=== PATIENT | female | born 1990 | race Caucasian/White ===

== ENCOUNTER 2017-04-15 04:13 | Inpatient (IN) ==
[2017-04-15] MEDS ORDERED: PHENERGAN ONE (04:24)
[2017-04-15] MEDS ORDERED: PHENERGAN IM ONE (04:25)
[2017-04-15 04:39] LABS: MANUAL DIFF NEEDED? NO
[2017-04-15 04:42] LABS: BASO% 0.1 % (0.0-0.8); EOS# 0.29 X1000 (0.0-0.7); HEMATOCRIT 40.2 % (37.0-47.0); HEMOGLOBIN 13.4 g/dL (12.0-16.0); IMM GRAN# 0.04 X1000 (0.0-0.04); IMM GRAN% 0.3 % (0.0-0.5); LYMPH# 3.49 X1000 (1.2-3.4); LYMPH% 24.5 % (20.5-51.1); MCH 29.1 PG (27-31); MCHC 33.3 g/dL (33-37); MCV 87.4 FL (81-99); MONO# 1.04 X1000 (0.11-0.59); MONO% 7.3 % (1.7-9.3); MPV 10.3 FL (7.4-10.4); NEUT% 65.8 % (42.2-75.2); PLT 354 X1000 (130-400)
[2017-04-15 05:03] LABS: AGAP 10; ALBUMIN 4.2 g/dL (3.5-5.0); ALKALINE PHOSPHATASE 59 U/L (32-104); AMYLASE 53 U/L (20-200); BUN 9 mg/dL (8-22); CALCIUM 8.9 mg/dL (8.8-10.2); CHLORIDE 103 mmol/L (98-107); COSMO 273; GOT 17 U/L (10-30); GPT 13 U/L (10-36); LIPASE 28 U/L (13-60); POTASSIUM 3.5 mmol/L (3.5-5.1); SODIUM 137 mmol/L (136-145); TCO2 24 mmol/L (25-35); TOTAL PROTEIN 6.9 g/dL (6.3-8.3)
--- NOTE | 2017-04-15 05:22 | PROVIDER DOCUMENTATION ---
HPI-Female /OB/Breast - General Chief Complaint: Abdominal Pain Stated Complaint: ABD PAIN Time Seen by Provider: 04/15/17 05:08 Source: reports: patient Allergies/Adverse Reactions: Patient Allergies Allergy/AdvReac Type Severity Reaction Status Date / Time No Known Allergies Allergy Verified 04/15/17 04:20 Home Medications: Home Medication List Medication Instructions Recorded Confirmed Last Taken Type NK [No Home Medications] 04/15/17 04/15/17 Unknown History - History of Present Illness-Female /OB Nature of Presenting Problem: woke up with diffuse abdominal pain at 4 :15 am nauseated some no vomiting no diarrhea no constipation no belly surgery no kidney stone not constipated had a bm yesterday no blood or blackstools Does patient report she is ?: No Location of complaint: reports: periumbilical Radiation: reports: back Quality of Pain: reports: stabbing Severity in ED: reports: moderate Onset/Duration: reports: 1-3 hours ago Timing: reports: still present, getting worse Context/Activities at Onset: reports: sleep Vaginal Symptoms: reports: no symptoms Vaginal Bleeding Amount: None Urinary Symptoms: reports: low back pain. denies: dysuria, frequency, hematuria , polyuria Modifying Factors: improves with: nothing Associated Symptoms: denies: constipation, diarrhea, fever/chills, nausea, syncope, vomiting Similar Symptoms Previously?: No Recently seen or treated by another doctor?: No Review of Systems - Adult - REVIEW OF SYSTEMS - ADULT Constitutional: reports: no symptoms reported Eyes: reports: no symptoms reported Ears, Nose, Mouth & Throat: reports: no symptoms reported Cardiovascular: reports: no symptoms reported Respiratory: reports: no symptoms reported Genitourinary: denies: dysuria, frequency, flank pain, frequent UTI's, hematuria , urinary retention Musculoskeletal: reports: no symptoms reported Integumentary: reports: no symptoms reported Neurological: reports: no symptoms reported Psychiatric: reports: no symptoms reported Endocrine: reports: no symptoms reported Hematologic/Lymphatic: reports: no symptoms reported, easy bruising. denies: blood clots, low blood count Allergic/Immunologic: reports: no symptoms reported Past History - Adult - PAST MEDICAL HISTORY-ADULT Review of Records: reports: Nursing Assessment Review, Medications Reviewed, Social history reviewed & non-contributory. Major Childhood Illnesses: reports: denies history Cardiovascular: reports: denies history Respiratory: reports: asthma Gastrointestinal: reports: denies history. denies: GERD, hepatitis, liver disease, pancreatitis Genitourinary: denies: kidney stones Musculoskeletal: reports: denies history Neurological: denies: denies history Psychiatric: reports: anxiety - PRIOR SURGERIES/PROCEDURES Surgical/Procedure History: reports: hysterectomy - IMMUNIZATION STATUS Childhood Immunizations: See Nurse Assessment Flu Vaccine: See Nurse Assessment - FAMILY HISTORY Family History: reviewed, not pertinent - SOCIAL HISTORY Smoking: cigarettes Alcohol Use Frequency: occasionally Physical Exam-General - CONSTITUTIONAL General Appearance: appears well Progress - PLAN OF CARE/RESULTS Progress/Plan/Lab Results: Vital Signs - 8 hr 04/15/17 04:15 04/15/17 07:17 Temperature 98.1 F 97.0 F L Pulse Rate 101 H 55 L Respiratory Rate 20 18 Blood Pressure 127/67 111/78 O2 Sat by Pulse Oximetry 97 97 Laboratory Results - last 24 hr 04/15/17 04/15/17 04/15/17 04:30 04:30 04:38 WBC 14.27 H RBC 4.60 Hgb 13.4 Hct 40.2 MCV 87.4 MCH 29.1 MCHC 33.3 RDW Std Deviation 13.1 Plt Count 354 MPV 10.3 Immature Gran % (Auto) 0.3 Neut % (Auto) 65.8 Lymph % (Auto) 24.5 [place] % (Auto) 7.3 Eos % (Auto) 2.0 Baso % (Auto) 0.1 Immature Gran # (Auto) 0.04 Neut # (Auto) 9.39 H Lymph # (Auto) 3.49 H [place] # (Auto) 1.04 H Eos # (Auto) 0.29 Baso # (Auto) 0.02 Sodium 137 Potassium 3.5 Chloride 103 Carbon Dioxide 24 L Anion Gap 10 BUN 9 Creatinine 0.5 Estimated GFR/1.73 m2 > 60 BUN/Creatinine Ratio 18 Glucose 103 Calculated Osmolality 273 Calcium 8.9 Total Bilirubin 0.40 AST 17 ALT 13 Alkaline Phosphatase 59 Total Protein 6.9 Albumin 4.2 Globulin 3.0 Albumin/Globulin Ratio 2.0 Amylase 53 Lipase 28 Urine Source CLEAN CATCH Urine Color YELLOW Urine Clarity CLEAR Urine pH 6.5 Ur Specific [place] 1.020 Urine Protein TRACE A Urine Ketones NEGATIVE Urine Blood NEGATIVE Urine Nitrite NEGATIVE Urine Bilirubin NEGATIVE Urine Urobilinogen NORMAL Urine Microscopic RBC <10 Urine WBC TRACE A Urine Microscopic WBC <10 Ur Epithelial Cells <10 Urine Crystals CA OXALATE PRESENT Urine Bacteria 2+ Urine Glucose NEGATIVE Orders Category Date Time Status ABDOMEN/PELVIS W/CONTRAST [CT] Stat Exams 04/15/17 06:06 Completed FLAT/UPRIGHT ABD/1 VIEW CHEST [RAD] Stat Exams 04/15/17 05:29 Completed AMYLASE [CHEM] Stat Lab 04/15/17 04:30 Completed CBC WITH DIFF [HEME] Stat Lab 04/15/17 04:30 Completed COMPREHENSIVE METABOLIC PANEL [CHEM] Stat Lab 04/15/17 04:30 Completed LIPASE [CHEM] Stat Lab 04/15/17 04:[address] W/POSS RFLX CULT [URINALYSIS] Stat Lab 04/15/17 04:38 Completed URINE CULTURE [RM] Routine Lab 04/15/17 05:43 Received Meperidine [Demerol] Med 04/15/17 05:30 Discontinued 25 mg IV NOW ONE Piperacil/Tazobact 3.375 gm/Ns [Zosyn 3.375 gm/Ns] Med 04/15/17 09:33 Discontinued 3.375 gm in 50 ml IV NOW Promethazine [Phenergan] Med 04/15/17 04:24 Discontinued 50 mg .ROUTE .STK-MED ONE Promethazine [Phenergan] Med 04/15/17 04:25 Discontinued 50 mg IM NOW ONE Transfer/Admit Order [TRANSFER] Routine Transfer 04/15/17 09:34 Ordered Result Diagrams: 04/15/17 04:30 04/15/17 04:30 - XRAY 1 XRAY Study: Abdomen Impression: Normal (nonspecific st wave changes) Departure - Departure Date of Disposition Decision: 04/15/17 Time of Disposition Decision: 10:16 DIAGNOSIS: Appendicitis Disposition: ADMITTED INPATIENT 09 Certified Medical Emergency: Emergent Condition: Stable Referrals and Follow-Ups: None,PCP [Primary Care Provider] - - Critical Care Note This patient required my direct & personal management of CC.: No Attestation - Physician/ PAM Attestation The physician spent face to face time with patient:: Yes Advanced Practice Provider documentation review:: The physician spent face to face time with this patient and agrees with all MLP documentation, treatment, and medical decision making by the MLP. See provider notes for further information.
[2017-04-15] MEDS ORDERED: DEMEROL IV ONE (05:30)
[2017-04-15 05:41] LABS: BILIRUBIN URINE NEGATIVE (NEGATIVE); BLOOD URINE NEGATIVE (NEGATIVE); CLARITY CLEAR (CLEAR); COLOR YELLOW; GLUCOSE URINE NEGATIVE (NEGATIVE); LEUKOCYTES URINE TRACE (NEGATIVE); NITRITE URINE NEGATIVE (NEGATIVE); PH URINE 6.5; PROTEIN URINE TRACE mg/dL (NEGATIVE); UROBILINOGEN URINE NORMAL
[2017-04-15 05:42] LABS: URINE SOURCE CLEAN CATCH
[2017-04-15 05:43] LABS: URINE CRYSTAL CA OXALATE PRESENT /HPF; URINE CULTURE PL NEEDED? YES; URINE EPITHELIAL CELLS <10 /HPF (<10); URINE RBC <10 /HPF (<10); URINE WBC <10 /HPF (<10)
--- NOTE | 2017-04-15 08:15 | Diag Imaging Result Doc PS360 ---
EXAM: ABDOMEN/PELVIS W/CONTRAST INDICATION: pain TECHNIQUE: Dose reduction protocol was used. COMPARISON: 09/23/2011 FINDINGS: The liver, gallbladder, spleen, pancreas, adrenal glands, and kidneys are unremarkable. The appendix is dilated measuring up to 9.7 mm in diameter and there are periappendiceal inflammatory changes consistent with acute appendicitis. There is no evidence of periappendiceal abscess or free abdominal gas to indicate perforation. There is a small amount of nonloculated free fluid layering in the pelvis. The remainder of the GI tract is grossly unremarkable. There is a 1.6 cm left ovarian cyst. There appears to have been a prior hysterectomy. The urinary bladder is unremarkable. IMPRESSION: 1.Acute appendicitis with no evidence of perforation on this study. 2.Other incidental/nonacute findings detailed above. Electronically signed by Yousif Sue 04/15/2017 8:13 AM
--- NOTE | 2017-04-15 08:41 | Diag Imaging Result Doc PS360 ---
EXAM: FLAT/UPRIGHT ABD/1 VIEW CHEST INDICATION: pain TECHNIQUE: 3 views COMPARISON: Chest radiograph dated 05/16/2016 FINDINGS: There are nonspecific bowel gas and stool patterns. There is no obstructive bowel pattern. There is no evidence of large volume free abdominal gas. There is no evidence of organomegaly. The lungs are grossly clear. There is no discrete pleural fluid collection or pneumothorax. The cardiomediastinal silhouette and central vasculature are grossly unremarkable. IMPRESSION: Nonspecific abdomen. Electronically signed by Yousif Sue 04/15/2017 8:38 AM
[2017-04-15] MEDS ORDERED: ZOSYN 3.375 GM/NS 3.375 GM/50 ML IVPB IV ONE (09:33)
[2017-04-15] MEDS ORDERED: LR 1,000 ML ONE ×2 (10:52→11:01)
[2017-04-15] MEDS ORDERED: INVANZ 1 GM/NS 1 GM/50 ML IVPB IV ONE (11:00)
[2017-04-15] MEDS ORDERED: INVANZ 1 GM/NS 1 GM/50 ML IVPB ONE (11:01)
[2017-04-15] MEDS ORDERED: XYLOCAINE 1%/EPI 1:100,000 ONE (11:10)
[2017-04-15] MEDS ORDERED: QUELICIN (DOSE) ONE (11:19)
[2017-04-15] MEDS ORDERED: XYLOCAINE-MPF 2% ONE (11:19)
[2017-04-15] MEDS ORDERED: DIPRIVAN 1% ONE (11:19)
[2017-04-15] MEDS ORDERED: ZEMURON ONE (11:19)
[2017-04-15] MEDS ORDERED: ZOFRAN ONE (11:32)
[2017-04-15] MEDS ORDERED: TORADOL ONE (11:32)
[2017-04-15] MEDS ORDERED: FENTANYL ONE (11:33)
[2017-04-15] MEDS ORDERED: ROBINUL ONE (11:51)
[2017-04-15] MEDS ORDERED: NEOSTIGMINE ONE (11:51)
[2017-04-15] MEDS: MORPHINE ONE ×2 (12:26→12:35)
[2017-04-15] MEDS ORDERED: NS 1,000 ML ONE (12:45)
[2017-04-15] MEDS: NS 1,000 ML IV SCH (13:30)
[2017-04-15] MEDS: BUPRENEX IV PRN ×2 (15:36→22:20)
--- NOTE | 2017-04-15 15:47 | OPERATIVE NOTE ---
PROCEDURE DATE: 04/15/2017 PROCEDURE PERFORMED: Laparoscopic appendectomy. SURGEON: Chris Coker MD. ACCOUNTS PAYABLE BOOKKEEPER: Elyse. PREOPERATIVE DIAGNOSIS: Acute appendicitis. POSTOPERATIVE DIAGNOSIS: Acute appendicitis. DESCRIPTION OF PROCEDURE: Satisfactory general endotracheal anesthesia achieved, the abdomen is prepped and draped in a sterile fashion. We anesthetized the skin at each trocar site. Began in the umbilicus, incised the skin, and used a 5 trocar Optiview technique to enter the abdominal cavity. We insufflated through this trocar. Under direct visualization, introduced a 12 trocar in the lower hypogastrium in the skin crease and a 5 trocar in the right lower quadrant. We placed the patient in Trendelenburg and turned her to the left. We identified the appendix as it came off the cecum at the anterior tinea we grasped the mesoappendix, we incised the attachments to the lateral abdominal wall with the LigaSure and then went through the mesoappendix with the LigaSure. We then introduced the Endo-JOHN nicholas cartridge 30 mm long and stapled and divided the base of the appendix. We placed the appendix within the Pleatman pouch and delivered out of the abdominal cavity through the lower hypogastric trocar site. We looked back. Hemostasis was satisfactory. No other obvious abnormalities were identified. We then desufflated and removed our trocars. We closed the fascia at the lower hypogastric trocar site with a 2-0 Polysorb figure- of-eight stitch. We then closed the skin at each incision with 4-0 Polysorb subcuticular stitches. Sterile OpSite's were applied. She tolerated it well. Was sent to the recovery room in satisfactory condition. cc: Chris Coker MD
[2017-04-15] MEDS ORDERED: PNEUMOVAX 23 IM ONE (17:45)
[2017-04-15] MEDS: PERIDEX MT SCH (22:23)
[2017-04-16] MEDS: BUPRENEX IV PRN ×2 (02:24→08:26)
[2017-04-16] MEDS: NS 1,000 ML IV SCH ×2 (02:31→15:15)
[2017-04-16] MEDS: NORCO-10 PO PRN ×3 (04:14→16:34)
[2017-04-16] MEDS: PERIDEX MT SCH (08:28)
[2017-04-16 18:39] VITALS: BP 99/67
== END 2017-04-16 19:16 | disposition home or self-care (01) ==
LOC: P.ED 04:13 → 4N 10:15
PROVIDERS: ADMIT Surgery; ATTEND Surgery